=== PATIENT | female | born 1960 | race Caucasian/White ===

== ENCOUNTER 2017-05-16 01:14 | Inpatient (IN) | payer MEDICARE, OTHER, MEDICAID ==
[~2017-05-16] VITALS: Ht 162.6 cm; Wt 100.0 kg
[~2017-05-16 01:14] MED LIST: ACET-2006 PO; ALBU2.5V12 NEB; AMIO200T57 PO; ANUHCCR RC; COM10T PO; CYAN10006 IM; CYCL-394 PO; DIPH-186 PO; DIPH-423 PO; ESTR2TAB PO; FENO145T38 PO; FLUT16SP26 NAS; FURO40TA4 PO; GABA-532 PO; HYDR30CR79 RC; KEN0.1O TP; MAGN500T3 PO; METO50TA16 PO; MORP-64 PO; NABU500T2 PO; NITR0.4T51 SL; NORCO10T PO; OMEP40CA37 PO; POTA10CA44 PO; POTA10TA19 PO; PROC25SU31 RC; SUCR1ORA12 PO; SUMA25TA35 PO; SYN0.1T PO; TRAZ-91 PO; VAL5T PO; [UNRECOGNIZED DRUG - CODE] PO
[2017-05-16] MEDS ORDERED: ondansetron/PF 4mg/2ml inj IV ONE (03:50)
[2017-05-16] MEDS ORDERED: mag hydrox/Alum hydrox/simeth 30ml oral suspension PO ONE (03:50)
[2017-05-16] MEDS ORDERED: LIDOcaine Viscous 15ml cup PO ONE (03:50)
[2017-05-16] MEDS ORDERED: normal saline 1000ml 1,000 ML IV ONE (03:50)
[2017-05-16] MEDS ORDERED: morphine 2 MG/ML inj. syringe IV ONE (03:50)
[2017-05-16] MEDS ORDERED: normal saline 1000ML IV soln IVB ONE (03:50)
[2017-05-16] MEDS ORDERED: morphine 4 MG/ML inj SYRINge IV ONE ×2 (04:15→05:55)
[2017-05-16 05:10] LABS: BASOPHILS % (AUTO) 0.2 % (0-1); EOSINOPHILS # (AUTO) 0.1 X10'3 (0-0.9); EOSINOPHILS % (AUTO) 0.9 % (0-6); HEMATOCRIT 38.5 % (35.0-45.0); HEMOGLOBIN 12.7 g/dl (12.0-16.0); LYMPHOCYTES # (AUTO) 0.6 X10'3 (1.1-4.8); LYMPHOCYTES % (AUTO) 4.1 % (21-51); MEAN CORPUSCULAR HEMOGLOBIN 28.6 PG (27.0-31.0); MEAN CORPUSCULAR VOLUME 86.4 FL (78-98); MEAN PLATELET VOLUME 8.3 FL (7.4-10.4); MONOCYTES # (AUTO) 0.7 X10'3 (0-0.9); MONOCYTES % (AUTO) 5.1 % (2-12); NEUTROPHILS % (AUTO) 89.7 % (42-75); PLATELET COUNT 183 X10'3 (140-440); RED BLOOD COUNT 4.46 X10'6 (4.20-5.60); WHITE BLOOD COUNT 13.4 X10'3 (4.5-11.0)
[2017-05-16] MEDS ORDERED: diphenhydrAMINE 50 mg/ml inj IV ONE ×2 (05:10→09:05)
[2017-05-16 05:21] LABS: INR 1.1 INR; PROTHROMBIN TIME 11.4 SECONDS (9.0-12.0)
[2017-05-16 05:25] LABS: ALANINE AMINOTRANSFERASE 16 U/L (12-78); ALBUMIN 2.9 G/DL (3.4-5.0); ALBUMIN/GLOBULIN RATIO 0.7 (1.1-1.5); ALKALINE PHOSPHATASE 68 IU/L (46-116); AMYLASE 79 U/L (25-115); ANION GAP 10 (8-16); ASPARTATE AMINO TRANSFERASE 12 U/L (10-37); BILIRUBIN,TOTAL 0.4 MG/DL (0.1-1.0); BLOOD UREA NITROGEN 14 MG/DL (7-18); BUN/CREATININE RATIO 18.9 (6.6-38.0); CALCIUM 9.3 MG/DL (8.5-10.1); CHLORIDE 104 MMOL/L (99-107); CREATININE 0.74 MG/DL (0.40-0.90); ETHANOL < 0.010 GM/DL (0.0-0.010); GLUCOSE 123 MG/DL (70-104); LIPASE 962 U/L (73-393); MAGNESIUM 1.4 MG/DL (1.5-2.4); POTASSIUM 3.1 MMOL/L (3.5-5.1); SODIUM 142 MMOL/L (135-145); TOTAL PROTEIN 6.8 G/DL (6.4-8.2); eGFR 81 ML/MIN
[2017-05-16 05:33] LABS: CLARITY,URINE CLEAR (Clear); COLOR,URINE YELLOW (Yellow); GLUCOSE, URINE NEGATIVE (Neg); KETONES,URINE NEGATIVE (Neg); LEUKOCYTE ESTERASE ,URINE NEGATIVE (Neg); NITRITES, URINE NEGATIVE (Neg); OCCULT BLOOD,URINE NEGATIVE (Neg); PH,URINE 5.5 (4.8-8.0); PROTEIN,URINE NEGATIVE (Neg); UROBILINOGEN,URINE 0.2 E.U/dL (0.2-1.0)
[2017-05-16 05:43] LABS: UA COLLECTION TYPE STRAIGHT CATH
[2017-05-16] MEDS ORDERED: magnesium 2GM in 50ml NS 50 ML IV ONE (05:44)
[2017-05-16] MEDS ORDERED: potassium 10mEq/100ml NS w/LIDOcaine (10mg/bag) IV ONE (05:45)
[2017-05-16 05:47] LABS: URINE AMPHETAMINE SCREEN NEGATIVE (Neg); URINE BARBITUATE SCREEN NEGATIVE (Neg); URINE BENZODIAZEPINES SCREEN POSITIVE (Neg); URINE CANNABINOID SCREEN POSITIVE (Neg); URINE COCAINE SCREEN NEGATIVE (Neg); URINE METHADONE SCREEN NEGATIVE (Neg); URINE OPIATE SCREEN POSITIVE (Neg); URINE PHENCYCLIDINE SCREEN NEGATIVE (Neg)
[2017-05-16] MEDS ORDERED: morphine 4 MG/ML inj SYRINge IM ONE (08:45)
[2017-05-16] MEDS ORDERED: dextrose 5%-1/2 normal saline 1,000 ML IV SCH (08:47)
[2017-05-16] MEDS ORDERED: HYDROmorphone inj. 0.5 MG/0.5 ML DISP.SYRIN IV PRN (08:50)
[2017-05-16] MEDS ORDERED: mag hydrox/Alum hydrox/simeth 30ml oral suspension PO PRN (08:50)
[2017-05-16] MEDS ORDERED: magnesium hydroxide 30ml (MOM) UD suspension PO PRN (08:50)
[2017-05-16] MEDS ORDERED: diphenhydrAMINE 50 mg/ml inj IV PRN (08:50)
[2017-05-16] MEDS ORDERED: nitroGLYCERIN 0.4mg SUBLingual tab SL PRN (09:00)
[2017-05-16] MEDS ORDERED: proCHLORperazine 10mg tablet PO PRN (09:00)
[2017-05-16] MEDS ORDERED: SUMAtriptan 25 MG tablet PO PRN (09:00)
[2017-05-16] MEDS ORDERED: fluticasone nasal spray 16GM bottle NS PRN (09:00)
[2017-05-16] MEDS ORDERED: diphenhydrAMINE 25mg capsule PO PRN (09:00)
[2017-05-16] MEDS ORDERED: cyanocobalamin 1,000 mcg/ml inj IM SCH (09:00)
[2017-05-16] MEDS ORDERED: proCHLORperazine 25mg suppository RC PRN (09:00)
[2017-05-16] MEDS ORDERED: triamcinolone acet 0.1% cream 15gm TP PRN (09:00)
[2017-05-16] MEDS ORDERED: diphenoxylate/atropine tablet (Lomotil) PO PRN (09:00)
[2017-05-16] MEDS ORDERED: non-formulary drug (Acetaminophen (Acetaminophen Extra Strength) 1 TAB) PO PRN (09:00)
[2017-05-16] MEDS ORDERED: diphenhydrAMINE 50 mg/ml inj ONE (09:06)
[2017-05-16] MEDS ORDERED: morphine 2 MG/ML inj. syringe IV PRN (09:10)
[2017-05-16] MEDS ORDERED: hydrocortisone acetate 25mg rectal suppository RC PRN (10:40)
[2017-05-16] MEDS: albuterol 2.5 MG/3 ML nebule NEB SCH ×3 (11:00→19:00)
[2017-05-16] MEDS ORDERED: GLUCOSAMINE SULFATE 500 MG PO SCH (13:00)
[2017-05-16] MEDS: sucralfate 1gm/10ml UD suspension PO SCH ×3 (13:02→20:36)
[2017-05-16] MEDS: gabapentin 300mg capsule PO SCH ×2 (13:02→20:33)
[2017-05-16] MEDS: morphine ER 15mg tablet PO SCH ×2 (13:02→20:34)
[2017-05-16] MEDS ORDERED: normal saline 500ml IV soln 1,000 ML IV ONE ×2 (14:30→16:25)
[2017-05-16] MEDS: HYDROcodone/acetaminophen 10/325mg tab PO PRN (15:09)
[2017-05-16] MEDS: SUMAtriptan 25 MG tablet PO PRN (17:02)
[2017-05-16] MEDS: dextrose 5%-1/2 normal saline 1,000 ML IV SCH (17:06)
[2017-05-16] MEDS: metoprolol tartrate 50mg tablet PO SCH (17:48)
[2017-05-16] MEDS ORDERED: normal saline 250ml IV soln 250 ML IV ONE (18:50)
[2017-05-16] MEDS: diazepam 5mg tablet PO PRN (18:58)
[2017-05-16] MEDS: cyclobenzaprine 10mg tablet PO PRN (18:58)
[2017-05-16] MEDS ORDERED: morphine IR (immed. release) 30mg tablet PO PRN (19:05)
[2017-05-16] MEDS ORDERED: non-formulary drug (Potassium Chloride (Klor-Con) 1 TAB) PO SCH (20:00)
[2017-05-16] MEDS: HYDROCORTISONE 28.35 GM CREAM.GM. RC SCH (20:00)
[2017-05-16] MEDS: docusate sod 100mg capsule PO SCH (20:33)
[2017-05-16] MEDS: magnesium oxide 400mg tablet PO SCH (20:34)
[2017-05-16] MEDS: potassium Cl 20 mEq SR tablet PO SCH (20:34)
[2017-05-16] MEDS: traZODone 150mg tablet PO SCH (20:56)
[2017-05-16] MEDS ORDERED: temazepam 15mg capsule PO PRN (21:00)
[2017-05-17] MEDS: albuterol 2.5 MG/3 ML nebule NEB SCH ×7 (00:51→23:00)
[2017-05-17] MEDS: ondansetron/PF 4mg/2ml inj IV PRN (01:18)
[2017-05-17] MEDS: morphine 4 MG/ML inj SYRINge IV PRN ×3 (01:19→12:35)
[2017-05-17] MEDS: dextrose 5%-1/2 normal saline 1,000 ML IV SCH ×2 (05:19→17:36)
[2017-05-17 06:43] LABS: BASOPHILS % (AUTO) 0.3 % (0-1); EOSINOPHILS % (AUTO) 0 % (0-6); HEMATOCRIT 32.3 % (35.0-45.0); HEMOGLOBIN 10.7 g/dl (12.0-16.0); LYMPHOCYTES # (AUTO) 0.5 X10'3 (1.1-4.8); LYMPHOCYTES % (AUTO) 6.3 % (21-51); MEAN CORPUSCULAR HEMOGLOBIN 28.8 PG (27.0-31.0); MEAN CORPUSCULAR HGB CONC 33.3 % (33.0-36.5); MEAN CORPUSCULAR VOLUME 86.3 FL (78-98); MEAN PLATELET VOLUME 8.1 FL (7.4-10.4); MONOCYTES # (AUTO) 0.6 X10'3 (0-0.9); MONOCYTES % (AUTO) 7.2 % (2-12); NEUTROPHILS # (AUTO) 6.9 X10'3 (1.8-7.7); NEUTROPHILS % (AUTO) 86.2 % (42-75); PLATELET COUNT 117 X10'3 (140-440); RED BLOOD COUNT 3.74 X10'6 (4.20-5.60); RED CELL DISTRIBUTION WIDTH 17.1 % (11.5-14.5)
[2017-05-17 07:13] LABS: ALANINE AMINOTRANSFERASE 9 U/L (12-78); ALBUMIN 1.9 G/DL (3.4-5.0); ALBUMIN/GLOBULIN RATIO 0.5 (1.1-1.5); ALKALINE PHOSPHATASE 55 IU/L (46-116); ANION GAP 6 (8-16); ASPARTATE AMINO TRANSFERASE 18 U/L (10-37); BILIRUBIN,TOTAL 0.4 MG/DL (0.1-1.0); BLOOD UREA NITROGEN 6 MG/DL (7-18); BUN/CREATININE RATIO 9.1 (6.6-38.0); CALCIUM 7.9 MG/DL (8.5-10.1); CHLORIDE 108 MMOL/L (99-107); CREATININE 0.66 MG/DL (0.40-0.90); GLUCOSE 114 MG/DL (70-104); LIPASE 323 U/L (73-393); POTASSIUM 3.6 MMOL/L (3.5-5.1); SODIUM 140 MMOL/L (135-145); TOTAL CARBON DIOXIDE 25.6 MMOL/L (24-32); TOTAL PROTEIN 5.5 G/DL (6.4-8.2); eGFR > 90 ML/MIN
[2017-05-17] MEDS: pantoprazole 40mg Tablet.DR PO SCH (07:30)
[2017-05-17] MEDS: metoprolol tartrate 50mg tablet PO SCH ×2 (08:00→21:31)
[2017-05-17] MEDS: docusate sod 100mg capsule PO SCH ×2 (08:00→21:31)
[2017-05-17] MEDS: furosemide 20MG tablet PO SCH (08:00)
[2017-05-17] MEDS: enoxaparin 40mg/0.4ml syringe SUBCUT SCH (08:00)
[2017-05-17] MEDS: fenofibrate 145mg tablet PO SCH (08:00)
[2017-05-17] MEDS: magnesium oxide 400mg tablet PO SCH ×2 (08:00→21:31)
[2017-05-17] MEDS: potassium Cl 20 mEq SR tablet PO SCH ×2 (08:00→21:31)
[2017-05-17] MEDS ORDERED: furosemide 40mg tablet PO SCH (08:00)
[2017-05-17] MEDS: levoTHYROXINE 100mcg tablet PO SCH (08:00)
[2017-05-17] MEDS: gabapentin 300mg capsule PO SCH ×3 (08:00→21:32)
[2017-05-17] MEDS: HYDROCORTISONE 28.35 GM CREAM.GM. RC SCH ×2 (08:00→20:00)
[2017-05-17] MEDS: morphine ER 15mg tablet PO SCH ×2 (08:00→21:31)
[2017-05-17 09:59] VITALS: BP 122/63
[2017-05-17] MEDS: sucralfate 1gm/10ml UD suspension PO SCH ×4 (11:19→21:31)
[2017-05-17] MEDS: estradiol 1mg tablet PO SCH (11:21)
[2017-05-17] MEDS: acetaminophen 325mg tablet PO PRN ×2 (11:35→21:37)
[2017-05-17] MEDS: HYDROcodone/acetaminophen 10/325mg tab PO PRN ×2 (11:36→19:00)
[2017-05-17 11:40] VITALS: BP 123/63
[2017-05-17] MEDS: amiodarone 100mg tablet PO SCH (12:34)
[2017-05-17] MEDS: SUMAtriptan 25 MG tablet PO PRN (17:37)
[2017-05-17 19:00] VITALS: BP 132/62
[2017-05-17] MEDS: traZODone 150mg tablet PO SCH (21:32)
[2017-05-17 23:00] VITALS: BP 105/52
[2017-05-18] MEDS: cyclobenzaprine 10mg tablet PO PRN (01:09)
[2017-05-18] MEDS: diazepam 5mg tablet PO PRN (01:10)
[2017-05-18] MEDS: albuterol 2.5 MG/3 ML nebule NEB SCH ×6 (03:00→23:00)
[2017-05-18 06:54] LABS: BASOPHILS % (AUTO) 0.1 % (0-1); EOSINOPHILS # (AUTO) 0.1 X10'3 (0-0.9); EOSINOPHILS % (AUTO) 1.2 % (0-6); HEMATOCRIT 33.8 % (35.0-45.0); LYMPHOCYTES # (AUTO) 0.7 X10'3 (1.1-4.8); LYMPHOCYTES % (AUTO) 5.4 % (21-51); MEAN CORPUSCULAR HEMOGLOBIN 28.7 PG (27.0-31.0); MEAN CORPUSCULAR HGB CONC 32.5 % (33.0-36.5); MEAN CORPUSCULAR VOLUME 88.2 FL (78-98); MEAN PLATELET VOLUME 8.9 FL (7.4-10.4); MONOCYTES % (AUTO) 8.2 % (2-12); NEUTROPHILS # (AUTO) 10.3 X10'3 (1.8-7.7); NEUTROPHILS % (AUTO) 85.1 % (42-75); PLATELET COUNT 161 X10'3 (140-440); RED BLOOD COUNT 3.83 X10'6 (4.20-5.60); RED CELL DISTRIBUTION WIDTH 16.5 % (11.5-14.5); WHITE BLOOD COUNT 12.2 X10'3 (4.5-11.0)
[2017-05-18] MEDS: acetaminophen 325mg tablet PO PRN ×2 (07:06→15:28)
[2017-05-18] MEDS: morphine ER 15mg tablet PO SCH ×2 (07:07→20:50)
[2017-05-18] MEDS: magnesium oxide 400mg tablet PO SCH ×2 (07:07→20:49)
[2017-05-18] MEDS: estradiol 1mg tablet PO SCH (07:07)
[2017-05-18] MEDS: amiodarone 100mg tablet PO SCH (07:07)
[2017-05-18] MEDS: levoTHYROXINE 100mcg tablet PO SCH (07:08)
[2017-05-18] MEDS: furosemide 20MG tablet PO SCH (07:08)
[2017-05-18] MEDS: fenofibrate 145mg tablet PO SCH (07:08)
[2017-05-18] MEDS: potassium Cl 20 mEq SR tablet PO SCH ×2 (07:08→20:49)
[2017-05-18] MEDS: gabapentin 300mg capsule PO SCH ×3 (07:09→20:50)
[2017-05-18 07:10] LABS: ALANINE AMINOTRANSFERASE 15 U/L (12-78); ALBUMIN 1.9 G/DL (3.4-5.0); ALBUMIN/GLOBULIN RATIO 0.5 (1.1-1.5); ALKALINE PHOSPHATASE 75 IU/L (46-116); ANION GAP 9 (8-16); ASPARTATE AMINO TRANSFERASE 19 U/L (10-37); BILIRUBIN,TOTAL 0.4 MG/DL (0.1-1.0); BLOOD UREA NITROGEN 5 MG/DL (7-18); CALCIUM 8.1 MG/DL (8.5-10.1); CHLORIDE 106 MMOL/L (99-107); CREATININE 0.71 MG/DL (0.40-0.90); GLUCOSE 104 MG/DL (70-104); LIPASE 362 U/L (73-393); POTASSIUM 3.7 MMOL/L (3.5-5.1); SODIUM 140 MMOL/L (135-145); TOTAL CARBON DIOXIDE 25.5 MMOL/L (24-32); TOTAL PROTEIN 5.8 G/DL (6.4-8.2); eGFR 85 ML/MIN
[2017-05-18] MEDS: pantoprazole 40mg Tablet.DR PO SCH (07:10)
[2017-05-18] MEDS: sucralfate 1gm/10ml UD suspension PO SCH ×4 (07:10→20:51)
[2017-05-18] MEDS: docusate sod 100mg capsule PO SCH ×2 (07:10→20:49)
[2017-05-18] MEDS: enoxaparin 40mg/0.4ml syringe SUBCUT SCH (07:14)
[2017-05-18] MEDS: metoprolol tartrate 50mg tablet PO SCH ×2 (07:14→20:50)
[2017-05-18 07:40] VITALS: BP 149/79
[2017-05-18] MEDS: HYDROCORTISONE 28.35 GM CREAM.GM. RC SCH (08:00)
[2017-05-18] MEDS ORDERED: iohexol 300mg/ml 100ml inj. ONE (09:50)
[2017-05-18] MEDS: dextrose 5%-1/2 normal saline 1,000 ML IV SCH (11:19)
[2017-05-18] MEDS ORDERED: FURO-150 PO (11:33)
[2017-05-18] MEDS: morphine 4 MG/ML inj SYRINge IV PRN (11:34)
[2017-05-18 12:04] VITALS: BP 127/69
[2017-05-18 13:19] LABS: CLARITY,URINE CLOUDY (Clear); COLOR,URINE YELLOW (Yellow); GLUCOSE, URINE NEGATIVE (Neg); KETONES,URINE NEGATIVE (Neg); LEUKOCYTE ESTERASE ,URINE LARGE (Neg); NITRITES, URINE POSITIVE (Neg); OCCULT BLOOD,URINE MODERATE (Neg); PROTEIN,URINE NEGATIVE (Neg); UROBILINOGEN,URINE 0.2 E.U/dL (0.2-1.0)
[2017-05-18 13:22] LABS: UA COLLECTION TYPE NON-SPECIFIED
[2017-05-18 13:25] LABS: BACTERIA,URINE 4+ /HPF (Neg); WBC,URINE TNTC /HPF (0-4)
[2017-05-18 13:31] LABS: SQUAMOUS EPITHELIAL CELL,UR MODERATE /LPF (FEW)
[2017-05-18] MEDS: ondansetron/PF 4mg/2ml inj IV PRN (13:31)
[2017-05-18 13:32] LABS: RBC,URINE 0-2 /HPF (0-2); TRANSITIONAL EPI CELLS,URINE FEW /HPF
[2017-05-18 13:33] LABS: COARSE GRANULAR CAST 0-3 /LPF (NEGATIVE); HYALINE CASTS 0-3 /LPF (NEGATIVE); WBC CLUMPS,URINE FEW /HPF (NEGATIVE)
[2017-05-18] MEDS: HYDROcodone/acetaminophen 10/325mg tab PO PRN (15:50)
[2017-05-18 20:00] VITALS: BP 112/68
[2017-05-18] MEDS: HYDROCORTISONE RC SCH (20:00)
[2017-05-18] MEDS: PRAMOXINE RC SCH (20:00)
[2017-05-18] MEDS: lactobacillus rhamnosus 10,000 MMU CELLS/CAPSULE PO SCH (20:49)
[2017-05-18] MEDS: traZODone 150mg tablet PO SCH (20:50)
[2017-05-19] VITALS (8 sets, daily range): BP systolic 108–170; BP diastolic 57–85
[2017-05-19] MEDS: dextrose 5%-1/2 normal saline 1,000 ML IV SCH ×3 (02:02→20:23)
[2017-05-19] MEDS: albuterol 2.5 MG/3 ML nebule NEB SCH ×6 (03:00→23:00)
[2017-05-19 06:35] LABS: BASOPHILS % (AUTO) 0 % (0-1); EOSINOPHILS # (AUTO) 0.1 X10'3 (0-0.9); EOSINOPHILS % (AUTO) 1.3 % (0-6); HEMATOCRIT 28.4 % (35.0-45.0); HEMOGLOBIN 9.2 g/dl (12.0-16.0); LYMPHOCYTES # (AUTO) 0.5 X10'3 (1.1-4.8); LYMPHOCYTES % (AUTO) 6.7 % (21-51); MEAN CORPUSCULAR HEMOGLOBIN 28.6 PG (27.0-31.0); MEAN CORPUSCULAR HGB CONC 32.4 % (33.0-36.5); MEAN CORPUSCULAR VOLUME 88.4 FL (78-98); MEAN PLATELET VOLUME 8.6 FL (7.4-10.4); MONOCYTES # (AUTO) 0.7 X10'3 (0-0.9); NEUTROPHILS # (AUTO) 6.1 X10'3 (1.8-7.7); PLATELET COUNT 158 X10'3 (140-440); RED BLOOD COUNT 3.21 X10'6 (4.20-5.60); RED CELL DISTRIBUTION WIDTH 16.4 % (11.5-14.5); WHITE BLOOD COUNT 7.4 X10'3 (4.5-11.0)
[2017-05-19 06:47] LABS: ALANINE AMINOTRANSFERASE 9 U/L (12-78); ALBUMIN 1.7 G/DL (3.4-5.0); ALBUMIN/GLOBULIN RATIO 0.5 (1.1-1.5); ALKALINE PHOSPHATASE 63 IU/L (46-116); ANION GAP 5 (8-16); ASPARTATE AMINO TRANSFERASE 13 U/L (10-37); BILIRUBIN,TOTAL 0.3 MG/DL (0.1-1.0); BLOOD UREA NITROGEN 4 MG/DL (7-18); CHLORIDE 109 MMOL/L (99-107); CREATININE 0.67 MG/DL (0.40-0.90); GLUCOSE 113 MG/DL (70-104); LIPASE 100 U/L (73-393); POTASSIUM 3.7 MMOL/L (3.5-5.1); SODIUM 142 MMOL/L (135-145); TOTAL CARBON DIOXIDE 28.1 MMOL/L (24-32); TOTAL PROTEIN 5.4 G/DL (6.4-8.2); eGFR > 90 ML/MIN
[2017-05-19] MEDS: PRAMOXINE RC SCH ×2 (08:00→20:00)
[2017-05-19] MEDS: morphine ER 15mg tablet PO SCH ×2 (08:00→20:16)
[2017-05-19] MEDS: HYDROCORTISONE RC SCH ×2 (08:00→20:00)
[2017-05-19] MEDS: lactobacillus rhamnosus 10,000 MMU CELLS/CAPSULE PO SCH ×2 (09:33→20:12)
[2017-05-19] MEDS: magnesium oxide 400mg tablet PO SCH ×2 (09:33→20:16)
[2017-05-19] MEDS: gabapentin 300mg capsule PO SCH ×3 (09:34→20:13)
[2017-05-19] MEDS: potassium Cl 20 mEq SR tablet PO SCH ×2 (09:34→20:12)
[2017-05-19] MEDS: fenofibrate 145mg tablet PO SCH (09:34)
[2017-05-19] MEDS: pantoprazole 40mg Tablet.DR PO SCH (09:34)
[2017-05-19] MEDS: metoprolol tartrate 50mg tablet PO SCH ×2 (09:34→20:16)
[2017-05-19] MEDS: furosemide 20MG tablet PO SCH (09:35)
[2017-05-19] MEDS: amiodarone 100mg tablet PO SCH (09:35)
[2017-05-19] MEDS: docusate sod 100mg capsule PO SCH ×2 (09:35→20:16)
[2017-05-19] MEDS: levoTHYROXINE 100mcg tablet PO SCH (09:35)
[2017-05-19] MEDS: HYDROcodone/acetaminophen 10/325mg tab PO PRN ×2 (09:40→13:39)
[2017-05-19] MEDS: estradiol 1mg tablet PO SCH (09:42)
[2017-05-19] MEDS: sucralfate 1gm/10ml UD suspension PO SCH ×4 (09:42→20:12)
[2017-05-19] MEDS: enoxaparin 40mg/0.4ml syringe SUBCUT SCH (09:42)
[2017-05-19] MEDS: cefTRIAXone 1g/NS 100ml IVPB 100 ML IV SCH (09:43)
[2017-05-19] MEDS ORDERED: SUMAtriptan 25 MG tablet PO ONE (10:20)
[2017-05-19] MEDS: morphine IR (immed. release) 30mg tablet PO PRN (13:46)
[2017-05-19] MEDS ORDERED: MIDAZolam 5mg/ml 2ml vial ONE (15:20)
[2017-05-19] MEDS ORDERED: fentaNYL/PF 50MCG/1 ML 2ML syringe ONE (15:20)
[2017-05-19] MEDS ORDERED: LIDOcaine Viscous 15ml cup ONE (15:21)
[2017-05-19] MEDS ORDERED: normal saline 1000ml 1,000 ML IV SCH (15:54)
[2017-05-19] MEDS ORDERED: LIDOcaine Viscous 15ml cup PO ONE (15:55)
[2017-05-19] MEDS ORDERED: fentaNYL/PF 50MCG/1 ML 2ML syringe IV PRN (15:55)
[2017-05-19] MEDS ORDERED: MIDAZolam 5mg/5ml vial IV PRN (15:55)
[2017-05-19] MEDS ORDERED: simethicone 40mg/0.6ml oral drops 30ml MC ONE (15:55)
[2017-05-19] MEDS: traZODone 150mg tablet PO SCH (20:12)
[2017-05-20] VITALS: BP 102/55
[2017-05-20] MEDS: acetaminophen 325mg tablet PO PRN ×2 (02:33→14:15)
[2017-05-20] MEDS: albuterol 2.5 MG/3 ML nebule NEB SCH ×4 (04:29→15:00)
[2017-05-20 06:17] LABS: BASOPHILS % (AUTO) 0.2 % (0-1); EOSINOPHILS # (AUTO) 0.1 X10'3 (0-0.9); EOSINOPHILS % (AUTO) 1.4 % (0-6); HEMATOCRIT 28.1 % (35.0-45.0); HEMOGLOBIN 9.3 g/dl (12.0-16.0); LYMPHOCYTES # (AUTO) 0.6 X10'3 (1.1-4.8); MEAN CORPUSCULAR HEMOGLOBIN 28.7 PG (27.0-31.0); MEAN CORPUSCULAR VOLUME 86.8 FL (78-98); MEAN PLATELET VOLUME 8.3 FL (7.4-10.4); MONOCYTES # (AUTO) 0.4 X10'3 (0-0.9); MONOCYTES % (AUTO) 7.6 % (2-12); NEUTROPHILS # (AUTO) 4.7 X10'3 (1.8-7.7); NEUTROPHILS % (AUTO) 79.8 % (42-75); PLATELET COUNT 156 X10'3 (140-440); RED BLOOD COUNT 3.24 X10'6 (4.20-5.60); RED CELL DISTRIBUTION WIDTH 16.3 % (11.5-14.5); WHITE BLOOD COUNT 5.9 X10'3 (4.5-11.0)
[2017-05-20 06:47] LABS: ALANINE AMINOTRANSFERASE 13 U/L (12-78); ALBUMIN 1.8 G/DL (3.4-5.0); ALBUMIN/GLOBULIN RATIO 0.5 (1.1-1.5); ALKALINE PHOSPHATASE 60 IU/L (46-116); ANION GAP 11 (8-16); ASPARTATE AMINO TRANSFERASE 14 U/L (10-37); BILIRUBIN,TOTAL 0.3 MG/DL (0.1-1.0); BLOOD UREA NITROGEN 3 MG/DL (7-18); CALCIUM 8.3 MG/DL (8.5-10.1); CHLORIDE 109 MMOL/L (99-107); GLUCOSE 95 MG/DL (70-104); LIPASE < 50 U/L (73-393); POTASSIUM 3.9 MMOL/L (3.5-5.1); SODIUM 141 MMOL/L (135-145); TOTAL CARBON DIOXIDE 21.2 MMOL/L (24-32); TOTAL PROTEIN 5.5 G/DL (6.4-8.2); eGFR > 90 ML/MIN
[2017-05-20 07:00] VITALS: BP 107/54
[2017-05-20] MEDS: HYDROCORTISONE RC SCH (07:33)
[2017-05-20] MEDS: PRAMOXINE RC SCH (07:33)
[2017-05-20] MEDS: metoprolol tartrate 50mg tablet PO SCH (09:55)
[2017-05-20] MEDS: furosemide 20MG tablet PO SCH (09:55)
[2017-05-20] MEDS: pantoprazole 40mg Tablet.DR PO SCH (09:56)
[2017-05-20] MEDS: amiodarone 100mg tablet PO SCH (09:56)
[2017-05-20] MEDS: morphine ER 15mg tablet PO SCH (09:56)
[2017-05-20] MEDS: lactobacillus rhamnosus 10,000 MMU CELLS/CAPSULE PO SCH (09:56)
[2017-05-20] MEDS: magnesium oxide 400mg tablet PO SCH (09:57)
[2017-05-20] MEDS: docusate sod 100mg capsule PO SCH (09:58)
[2017-05-20] MEDS: estradiol 1mg tablet PO SCH (09:58)
[2017-05-20] MEDS: potassium Cl 20 mEq SR tablet PO SCH (09:59)
[2017-05-20] MEDS: gabapentin 300mg capsule PO SCH ×2 (10:00→12:33)
[2017-05-20] MEDS: sucralfate 1gm/10ml UD suspension PO SCH ×2 (10:00→12:33)
[2017-05-20] MEDS: fenofibrate 145mg tablet PO SCH (10:00)
[2017-05-20] MEDS: cefTRIAXone 1g/NS 100ml IVPB 100 ML IV SCH (10:01)
[2017-05-20] MEDS: enoxaparin 40mg/0.4ml syringe SUBCUT SCH (10:02)
[2017-05-20] MEDS: levoTHYROXINE 100mcg tablet PO SCH (10:09)
[2017-05-20] MEDS: morphine IR (immed. release) 30mg tablet PO PRN (10:10)
[2017-05-20] MEDS: dextrose 5%-1/2 normal saline 1,000 ML IV SCH (10:11)
[2017-05-20] MEDS ORDERED: CEPH250T PO (10:39)
[2017-05-20 11:00] VITALS: BP 129/68
[2017-05-20] MEDS: HYDROcodone/acetaminophen 10/325mg tab PO PRN (12:33)
== END 2017-05-20 16:05 | disposition home health service (06) | DRG 377 ==
LOC: ER 01:14 → ED HOLD 08:47 → EDBEDREQ 05-17 06:35 → SUR 3N 05-17 08:18
PROVIDERS: ADMIT Internal Medicine; ATTEND Internal Medicine
PROC: 0DJ08ZZ Inspection of Upper Intestinal Tract, Via Natural or Artificial Opening Endoscopic (ICD-10-PCS; principal; 2017-05-19)
DX: K29.71 Gastritis, unspecified, with bleeding (principal); K85.90 Acute pancreatitis without necrosis or infection, unspecified; Z99.81 Dependence on supplemental oxygen; E83.42 Hypomagnesemia; G62.9 Polyneuropathy, unspecified; D62 Acute posthemorrhagic anemia; K86.1 Other chronic pancreatitis; G90.50 Complex regional pain syndrome I, unspecified; E87.6 Hypokalemia; E86.0 Dehydration; E03.9 Hypothyroidism, unspecified; G43.909 Migraine, unspecified, not intractable, without status migrainosus; G89.4 Chronic pain syndrome; I10 Essential (primary) hypertension; J44.9 Chronic obstructive pulmonary disease, unspecified; K21.9 Gastro-esophageal reflux disease without esophagitis; D64.9 Anemia, unspecified; K44.9 Diaphragmatic hernia without obstruction or gangrene; F32.9 Major depressive disorder, single episode, unspecified; F41.9 Anxiety disorder, unspecified; M79.7 Fibromyalgia; E66.9 Obesity, unspecified; F17.210 Nicotine dependence, cigarettes, uncomplicated; Z60.2 Problems related to living alone; Z90.710 Acquired absence of both cervix and uterus; Z90.49 Acquired absence of other specified parts of digestive tract; Z56.0 Unemployment, unspecified; Z88.0 Allergy status to penicillin; Z88.2 Allergy status to sulfonamides; Z88.6 Allergy status to analgesic agent; Z91.040 Latex allergy status; Z91.018 Allergy to other foods; Z79.899 Other long term (current) drug therapy; Z86.73 Personal history of transient ischemic attack (TIA), and cerebral infarction without residual deficits; Z83.3 Family history of diabetes mellitus; Z82.61 Family history of arthritis; Z68.37 Body mass index [BMI] 37.0-37.9, adult
CPT/HCPCS: 36415; 71045; 74177; 80053; 80305; 80320; 81001; 81003; 82150; 83605; 83690; 83735; 84443; 84484; 85025; 85610; 87040; 87070; 87077; 87088; 87186; 93005; 94640; 94760; 96361; 96365; 96366; 96375; 99285; A4620; G0500; J0696; J1200; J1650; J2250; J2270; J2405; J3010; J3475; J3480; J7030; Q9967

== ENCOUNTER 2017-08-19 21:28 | Emergency (ER) | payer MEDICARE, OTHER, MEDICAID ==
[~2017-08-19] VITALS: Ht 162.6 cm; Wt 77.7 kg
[~2017-08-19 21:28] MED LIST changes: -AMIO200T57 PO; +CEPH250T PO; -COM10T PO; -CYAN10006 IM; +FURO-150 PO; -FURO40TA4 PO; -NABU500T2 PO; -POTA10CA44 PO
[2017-08-19] MEDS ORDERED: ondansetron/PF 4mg/2ml inj IV ONE (22:30)
[2017-08-19] MEDS ORDERED: morphine 4 MG/ML inj SYRINge IV ONE (22:30)
[2017-08-19] MEDS ORDERED: furosemide 10 MG/1 ML 10ml inj IV ONE (22:30)
[2017-08-19 22:46] LABS: BASOPHILS % (AUTO) 0.5 % (0-1); EOSINOPHILS # (AUTO) 0.1 X10'3 (0-0.9); EOSINOPHILS % (AUTO) 4.4 % (0-6); HEMATOCRIT 33.4 % (35.0-45.0); HEMOGLOBIN 11.1 g/dl (12.0-16.0); LYMPHOCYTES # (AUTO) 0.8 X10'3 (1.1-4.8); LYMPHOCYTES % (AUTO) 25.9 % (21-51); MEAN CORPUSCULAR HEMOGLOBIN 30.3 PG (27.0-31.0); MEAN CORPUSCULAR HGB CONC 33.1 % (33.0-36.5); MEAN CORPUSCULAR VOLUME 91.4 FL (78-98); MEAN PLATELET VOLUME 8.4 FL (7.4-10.4); MONOCYTES # (AUTO) 0.2 X10'3 (0-0.9); MONOCYTES % (AUTO) 8.3 % (2-12); NEUTROPHILS # (AUTO) 1.8 X10'3 (1.8-7.7); NEUTROPHILS % (AUTO) 60.9 % (42-75); PLATELET COUNT 91 X10'3 (140-440); RED BLOOD COUNT 3.66 X10'6 (4.20-5.60); RED CELL DISTRIBUTION WIDTH 17.4 % (11.5-14.5); WHITE BLOOD COUNT 2.9 X10'3 (4.5-11.0)
[2017-08-19 22:56] LABS: INR 1.2 INR; PARTIAL THROMBOPLASTIN TIME 31 SECONDS (22-32); PROTHROMBIN TIME 12.4 SECONDS (9.0-12.0)
[2017-08-19 22:59] LABS: ALANINE AMINOTRANSFERASE 14 U/L (12-78); ALBUMIN 2.4 G/DL (3.4-5.0); ALBUMIN/GLOBULIN RATIO 0.8 (1.1-1.5); ALKALINE PHOSPHATASE 87 IU/L (46-116); ANION GAP 3 (8-16); ASPARTATE AMINO TRANSFERASE 21 U/L (10-37); BILIRUBIN,TOTAL 0.3 MG/DL (0.1-1.0); BLOOD UREA NITROGEN 8 MG/DL (7-18); BUN/CREATININE RATIO 10.4 (6.6-38.0); CALCIUM 8.2 MG/DL (8.5-10.1); CHLORIDE 104 MMOL/L (99-107); CREATININE 0.77 MG/DL (0.40-0.90); GLUCOSE 93 MG/DL (70-104); POTASSIUM 3.1 MMOL/L (3.5-5.1); SODIUM 139 MMOL/L (135-145); TOTAL CARBON DIOXIDE 31.7 MMOL/L (24-32); TOTAL PROTEIN 5.4 G/DL (6.4-8.2); eGFR 77 ML/MIN
[2017-08-19 23:03] LABS: GIANT PLATELET FEW; PLATELET ESTIMATE DECREASED; TOTAL CELLS COUNTED 100
[2017-08-19] MEDS ORDERED: iohexol 300mg/ml 100ml inj. ONE (23:03)
[2017-08-19] MEDS ORDERED: potassium Cl 20 mEq SR tablet PO STA (23:05)
[2017-08-19 23:10] LABS: CREATINE KINASE 58 U/L (26-192); ETHANOL < 0.010 GM/DL (0.0-0.010); LIPASE 53 U/L (73-393)
[2017-08-20 00:06] VITALS: BP 130/60
[2017-08-20 00:50] LABS: CLARITY,URINE CLEAR (Clear); COLOR,URINE YELLOW (Yellow); GLUCOSE, URINE NEGATIVE (Neg); KETONES,URINE NEGATIVE (Neg); LEUKOCYTE ESTERASE ,URINE NEGATIVE (Neg); NITRITES, URINE NEGATIVE (Neg); OCCULT BLOOD,URINE NEGATIVE (Neg); PH,URINE 5.5 (4.8-8.0); PROTEIN,URINE NEGATIVE (Neg); UROBILINOGEN,URINE 0.2 E.U/dL (0.2-1.0)
[2017-08-20 00:51] LABS: UA COLLECTION TYPE CLN CATCH MIDSTREAM
[2017-08-20 00:57] LABS: URINE AMPHETAMINE SCREEN NEGATIVE (Neg); URINE BARBITUATE SCREEN NEGATIVE (Neg); URINE BENZODIAZEPINES SCREEN POSITIVE (Neg); URINE CANNABINOID SCREEN NEGATIVE (Neg); URINE COCAINE SCREEN NEGATIVE (Neg); URINE METHADONE SCREEN NEGATIVE (Neg); URINE OPIATE SCREEN POSITIVE (Neg); URINE PHENCYCLIDINE SCREEN NEGATIVE (Neg)
[2017-08-20] MEDS ORDERED: PRED20TA PO (01:30)
== END 2017-08-20 02:27 | disposition home or self-care (01) ==
LOC: ER 21:28
DX: R10.9 Unspecified abdominal pain (principal); E87.6 Hypokalemia; E46 Unspecified protein-calorie malnutrition; D72.819 Decreased white blood cell count, unspecified; G62.9 Polyneuropathy, unspecified; I49.9 Cardiac arrhythmia, unspecified; I10 Essential (primary) hypertension; J44.9 Chronic obstructive pulmonary disease, unspecified; G89.29 Other chronic pain; M79.7 Fibromyalgia; K21.9 Gastro-esophageal reflux disease without esophagitis; Z90.710 Acquired absence of both cervix and uterus; Z86.73 Personal history of transient ischemic attack (TIA), and cerebral infarction without residual deficits; Z98.890 Other specified postprocedural states; Z60.2 Problems related to living alone; Z56.0 Unemployment, unspecified; Z88.0 Allergy status to penicillin; Z88.5 Allergy status to narcotic agent; Z88.2 Allergy status to sulfonamides; Z88.8 Allergy status to other drugs, medicaments and biological substances; Z79.899 Other long term (current) drug therapy
CPT/HCPCS: 36415; 71045; 74176; 80053; 80305; 80320; 81003; 82550; 83690; 83880; 84484; 85025; 85610; 85730; 93005; 96374; 96375; 99285; J1940; J2270; J2405; J7030; Q9967

== ENCOUNTER → 2017-10-22 | Emergency (ER) | payer MEDICARE, OTHER, MEDICAID ==
[~2017-10-22] VITALS: Ht 172.7 cm; Wt 77.6 kg
[~2017-10-22] MED LIST changes: +HUMAN PROTHROMBIN COMPLEX PCC IV ONE; +normal saline 1000ML IV soln IVB ONE
[2017-10-22 13:06] VITALS: BP 98/71
[2017-10-22 13:45] LABS: BASOPHILS % (AUTO) 0.3 % (0-1); EOSINOPHILS # (AUTO) 0.1 X10'3 (0-0.9); EOSINOPHILS % (AUTO) 0.5 % (0-6); HEMATOCRIT 37.2 % (35.0-45.0); HEMOGLOBIN 12.4 g/dl (12.0-16.0); LYMPHOCYTES # (AUTO) 0.9 X10'3 (1.1-4.8); LYMPHOCYTES % (AUTO) 8.7 % (21-51); MEAN CORPUSCULAR HEMOGLOBIN 31.4 PG (27.0-31.0); MEAN CORPUSCULAR HGB CONC 33.4 % (33.0-36.5); MEAN CORPUSCULAR VOLUME 94.1 FL (78-98); MEAN PLATELET VOLUME 9.6 FL (7.4-10.4); MONOCYTES # (AUTO) 1.1 X10'3 (0-0.9); MONOCYTES % (AUTO) 10.2 % (2-12); NEUTROPHILS # (AUTO) 8.3 X10'3 (1.8-7.7); NEUTROPHILS % (AUTO) 80.3 % (42-75); PLATELET COUNT 116 X10'3 (140-440); RED BLOOD COUNT 3.95 X10'6 (4.20-5.60); RED CELL DISTRIBUTION WIDTH 15.7 % (11.5-14.5); WHITE BLOOD COUNT 10.3 X10'3 (4.5-11.0)
[2017-10-22 13:54] LABS: INR 1.5 INR; PROTHROMBIN TIME 15.2 SECONDS (9.0-12.0)
[2017-10-22 14:03] LABS: LACTIC SEPSIS 0.6 MMOL/L (0.4-2.0)
[2017-10-22 14:17] LABS: ALANINE AMINOTRANSFERASE 46 U/L (12-78); ALBUMIN 2.1 G/DL (3.4-5.0); ALBUMIN/GLOBULIN RATIO 0.7 (1.1-1.5); ALKALINE PHOSPHATASE 48 IU/L (46-116); ANION GAP 10 (8-16); BILIRUBIN,TOTAL 0.6 MG/DL (0.1-1.0); BLOOD UREA NITROGEN 46 MG/DL (7-18); BUN/CREATININE RATIO 19.1 (6.6-38.0); CALCIUM 7.3 MG/DL (8.5-10.1); CHLORIDE 98 MMOL/L (99-107); CREATININE 2.41 MG/DL (0.40-0.90); GLUCOSE 86 MG/DL (70-104); SODIUM 127 MMOL/L (135-145); TOTAL CARBON DIOXIDE 19.2 MMOL/L (24-32); TOTAL PROTEIN 5.3 G/DL (6.4-8.2); eGFR 21 ML/MIN
[2017-10-22 14:26] LABS: ACETAMINOPHEN 5.3 UG/ML (10-30); ASPARTATE AMINO TRANSFERASE 53 U/L (10-37); MAGNESIUM 1.9 MG/DL (1.5-2.4); PHOSPHORUS 3.5 MG/DL (2.3-4.5); POTASSIUM 4.7 MMOL/L (3.5-5.1)
[2017-10-22 14:27] LABS: ETHANOL < 0.010 GM/DL (0.0-0.010)
== END | disposition short-term general hospital (02) ==
LOC: ER 11:48
DX: S06.5X9A Traumatic subdural hemorrhage with loss of consciousness of unspecified duration, initial encounter (principal); G93.40 Encephalopathy, unspecified; R41.0 Disorientation, unspecified; I10 Essential (primary) hypertension; J44.9 Chronic obstructive pulmonary disease, unspecified; K21.9 Gastro-esophageal reflux disease without esophagitis; G89.29 Other chronic pain; M79.7 Fibromyalgia; F17.210 Nicotine dependence, cigarettes, uncomplicated; G62.9 Polyneuropathy, unspecified; Z88.0 Allergy status to penicillin; Z88.5 Allergy status to narcotic agent; Z88.2 Allergy status to sulfonamides; Z88.6 Allergy status to analgesic agent; Z88.8 Allergy status to other drugs, medicaments and biological substances; Z79.2 Long term (current) use of antibiotics; Z79.899 Other long term (current) drug therapy; Z90.710 Acquired absence of both cervix and uterus; Z98.890 Other specified postprocedural states; Z56.0 Unemployment, unspecified; Z60.2 Problems related to living alone; Z86.73 Personal history of transient ischemic attack (TIA), and cerebral infarction without residual deficits; W18.30XA Fall on same level, unspecified, initial encounter; Y93.89 Activity, other specified; Y92.89 Other specified places as the place of occurrence of the external cause; Y99.8 Other external cause status
CPT/HCPCS: 36415; 70450; 71045; 80053; 80320; 80329; 82140; 83605; 83735; 84100; 84443; 85025; 85610; 93005; 96360; 99291; J7030; 84484

== ENCOUNTER 2017-11-03 16:34 | Emergency (ER) | payer MEDICARE, OTHER, MEDICAID ==
[~2017-11-03] VITALS: Ht 162.6 cm; Wt 90.0 kg
[~2017-11-03 16:34] MED LIST changes: -HUMAN PROTHROMBIN COMPLEX PCC IV ONE; -normal saline 1000ML IV soln IVB ONE
[2017-11-03] MEDS ORDERED: aspirin 81mg tab.chew PO ONE (16:55)
[2017-11-03 17:55] LABS: CLARITY,URINE SLIGHTLY CLOUDY (Clear); COLOR,URINE STRAW (Yellow); GLUCOSE, URINE NEGATIVE (Neg); KETONES,URINE NEGATIVE (Neg); LEUKOCYTE ESTERASE ,URINE SMALL (Neg); NITRITES, URINE NEGATIVE (Neg); OCCULT BLOOD,URINE TRACE-INTACT (Neg); PH,URINE 5.5 (4.8-8.0); PROTEIN,URINE NEGATIVE (Neg); UROBILINOGEN,URINE 0.2 E.U/dL (0.2-1.0)
[2017-11-03 17:56] LABS: UA COLLECTION TYPE STRAIGHT CATH
[2017-11-03 18:01] LABS: BACTERIA,URINE 2+ /HPF (Neg); RBC,URINE 0-2 /HPF (0-2); SQUAMOUS EPITHELIAL CELL,UR MANY /LPF (FEW); WBC CLUMPS,URINE MANY /HPF (NEGATIVE); WBC,URINE 30-50 /HPF (0-4)
[2017-11-03 18:07] LABS: BASOPHILS % (AUTO) 0.3 % (0-1); EOSINOPHILS # (AUTO) 0.1 X10'3 (0-0.9); EOSINOPHILS % (AUTO) 1.8 % (0-6); HEMATOCRIT 36.2 % (35.0-45.0); LYMPHOCYTES # (AUTO) 1.2 X10'3 (1.1-4.8); LYMPHOCYTES % (AUTO) 17.6 % (21-51); MEAN CORPUSCULAR HEMOGLOBIN 31.5 PG (27.0-31.0); MEAN CORPUSCULAR HGB CONC 33.1 % (33.0-36.5); MEAN PLATELET VOLUME 8.9 FL (7.4-10.4); MONOCYTES # (AUTO) 0.4 X10'3 (0-0.9); NEUTROPHILS % (AUTO) 74.3 % (42-75); PLATELET COUNT 136 X10'3 (140-440); RED BLOOD COUNT 3.81 X10'6 (4.20-5.60); RED CELL DISTRIBUTION WIDTH 16.1 % (11.5-14.5); WHITE BLOOD COUNT 6.8 X10'3 (4.5-11.0)
[2017-11-03 18:43] LABS: ALANINE AMINOTRANSFERASE 16 U/L (12-78); ALBUMIN 2.2 G/DL (3.4-5.0); ALBUMIN/GLOBULIN RATIO 0.7 (1.1-1.5); ALKALINE PHOSPHATASE 86 IU/L (46-116); ANION GAP 9 (8-16); ASPARTATE AMINO TRANSFERASE 17 U/L (10-37); BILIRUBIN,TOTAL 0.4 MG/DL (0.1-1.0); BLOOD UREA NITROGEN 4 MG/DL (7-18); BUN/CREATININE RATIO 6.9 (6.6-38.0); CALCIUM 7.7 MG/DL (8.5-10.1); CHLORIDE 107 MMOL/L (99-107); CREATININE 0.58 MG/DL (0.40-0.90); GLUCOSE 80 MG/DL (70-104); POTASSIUM 3.3 MMOL/L (3.5-5.1); SODIUM 140 MMOL/L (135-145); TOTAL CARBON DIOXIDE 24.4 MMOL/L (24-32); TOTAL PROTEIN 5.3 G/DL (6.4-8.2); eGFR > 90 ML/MIN
[2017-11-03 19:03] LABS: MAGNESIUM 0.8 MG/DL (1.5-2.4)
[2017-11-03] MEDS ORDERED: magnesium 4gm in 100ml NS 100 ML IV ONE (19:15)
[2017-11-03] MEDS ORDERED: ketorolac trometh. 30mg/ml inj. IV ONE (19:15)
[2017-11-03 21:51] VITALS: BP 133/79
== END 2017-11-04 00:01 | disposition home or self-care (01) ==
LOC: ER 16:35
DX: R07.9 Chest pain, unspecified (principal); R19.7 Diarrhea, unspecified; E83.42 Hypomagnesemia; G62.9 Polyneuropathy, unspecified; I50.9 Heart failure, unspecified; I10 Essential (primary) hypertension; J45.909 Unspecified asthma, uncomplicated; K21.9 Gastro-esophageal reflux disease without esophagitis; M79.7 Fibromyalgia; F41.9 Anxiety disorder, unspecified; F32.9 Major depressive disorder, single episode, unspecified; Z90.710 Acquired absence of both cervix and uterus; Z88.0 Allergy status to penicillin; Z88.2 Allergy status to sulfonamides; Z88.6 Allergy status to analgesic agent; Z88.5 Allergy status to narcotic agent
CPT/HCPCS: 36415; 71045; 80053; 81001; 83735; 83880; 84484; 85025; 87088; 87186; 96365; 96366; 96375; 99285; J1885; J3475; 87077

== ENCOUNTER 2017-11-09 08:17 | Emergency (ER) | payer MEDICARE, OTHER, MEDICAID ==
[~2017-11-09] VITALS: Ht 162.6 cm; Wt 72.7 kg
[2017-11-09 09:29] VITALS: BP 128/84
[2017-11-09 09:31] LABS: BASOPHILS % (AUTO) 0.8 % (0-1); EOSINOPHILS # (AUTO) 0.1 X10'3 (0-0.9); EOSINOPHILS % (AUTO) 1.1 % (0-6); HEMATOCRIT 37.1 % (35.0-45.0); HEMOGLOBIN 12.4 g/dl (12.0-16.0); LYMPHOCYTES # (AUTO) 0.7 X10'3 (1.1-4.8); LYMPHOCYTES % (AUTO) 11.2 % (21-51); MEAN CORPUSCULAR HEMOGLOBIN 31.9 PG (27.0-31.0); MEAN CORPUSCULAR HGB CONC 33.3 % (33.0-36.5); MEAN CORPUSCULAR VOLUME 95.8 FL (78-98); MONOCYTES # (AUTO) 0.3 X10'3 (0-0.9); NEUTROPHILS # (AUTO) 4.8 X10'3 (1.8-7.7); NEUTROPHILS % (AUTO) 81.9 % (42-75); PLATELET COUNT 131 X10'3 (140-440); RED BLOOD COUNT 3.87 X10'6 (4.20-5.60); RED CELL DISTRIBUTION WIDTH 14.9 % (11.5-14.5); WHITE BLOOD COUNT 5.9 X10'3 (4.5-11.0)
[2017-11-09 09:45] LABS: ALANINE AMINOTRANSFERASE 11 U/L (12-78); ALBUMIN 2.2 G/DL (3.4-5.0); ALBUMIN/GLOBULIN RATIO 0.7 (1.1-1.5); ALKALINE PHOSPHATASE 100 IU/L (46-116); ANION GAP 7 (8-16); ASPARTATE AMINO TRANSFERASE 19 U/L (10-37); BILIRUBIN,TOTAL 0.5 MG/DL (0.1-1.0); BLOOD UREA NITROGEN 4 MG/DL (7-18); BUN/CREATININE RATIO 6.3 (6.6-38.0); CALCIUM 8.3 MG/DL (8.5-10.1); CHLORIDE 103 MMOL/L (99-107); CREATININE 0.63 MG/DL (0.40-0.90); GLUCOSE 94 MG/DL (70-104); POTASSIUM 3.8 MMOL/L (3.5-5.1); SODIUM 139 MMOL/L (135-145); TOTAL CARBON DIOXIDE 29.2 MMOL/L (24-32); TOTAL PROTEIN 5.4 G/DL (6.4-8.2); eGFR > 90 ML/MIN
[2017-11-09 09:53] LABS: MAGNESIUM 1.2 MG/DL (1.5-2.4)
== END 2017-11-09 10:49 | disposition home or self-care (01) ==
LOC: ER 08:17
DX: R00.2 Palpitations (principal); R00.0 Tachycardia, unspecified; G62.9 Polyneuropathy, unspecified; I11.0 Hypertensive heart disease with heart failure; I50.9 Heart failure, unspecified; J44.9 Chronic obstructive pulmonary disease, unspecified; K21.9 Gastro-esophageal reflux disease without esophagitis; G89.29 Other chronic pain; M79.7 Fibromyalgia; Z86.73 Personal history of transient ischemic attack (TIA), and cerebral infarction without residual deficits; Z98.890 Other specified postprocedural states; Z90.710 Acquired absence of both cervix and uterus; Z56.0 Unemployment, unspecified; Z88.0 Allergy status to penicillin; Z88.5 Allergy status to narcotic agent; Z88.2 Allergy status to sulfonamides; Z79.899 Other long term (current) drug therapy
CPT/HCPCS: 36415; 80053; 83735; 84443; 85025; 93005; 99285

== ENCOUNTER 2018-08-10 12:32 | Emergency (ER) | payer MEDICARE, OTHER, MEDICAID ==
[~2018-08-10] VITALS: Ht 162.6 cm; Wt 68.0 kg
[~2018-08-10 12:32] MED LIST changes: -ACET-2006 PO; +AMYL1CAP55 PO; -ANUHCCR RC; +BUPR1PAT TOP; -CEPH250T PO; +CEPH500C5 PO; -CYCL-394 PO; +CYCL10TA25 PO; -DIPH-186 PO; -DIPH-423 PO; +DIPH1TAB28 PO; +DOXY-224 PO; +FOLI0.4T2 PO; +HYDR-3964 PO; -KEN0.1O TP; +LEVE500T PO; +LEVO88TA7 PO; -MORP-64 PO; -NORCO10T PO; +OMEP-50 PO; -OMEP40CA37 PO; +POLY1DRO2 OP; -POTA10TA19 PO; +POTA20TA19 PO; +PROC10TA10 PO; -PROC25SU31 RC; -SUCR1ORA12 PO; +SUMA100T16 PO; -SUMA25TA35 PO; -SYN0.1T PO; -TRAZ-91 PO; +TRAZ150T78 PO; +UMEC1DIS INH; -VAL5T PO
[2018-08-10] MEDS ORDERED: ondansetron/PF 4mg/2ml inj IV ONE (13:00)
[2018-08-10] MEDS ORDERED: normal saline 1000ML IV soln IVB ONE (13:00)
[2018-08-10] MEDS ORDERED: acetaminophen 1,000mg/100ml IV 100 ML IV ONE (14:00)
[2018-08-10 14:48] LABS: ALANINE AMINOTRANSFERASE 34 U/L (12-78); ALBUMIN/GLOBULIN RATIO 0.2 (1.1-1.5); ALKALINE PHOSPHATASE 170 IU/L (46-116); ANION GAP 2 (8-16); ASPARTATE AMINO TRANSFERASE 74 U/L (10-37); BILIRUBIN,TOTAL 0.8 MG/DL (0.1-1.0); BLOOD UREA NITROGEN 4 MG/DL (7-18); BUN/CREATININE RATIO 5.3 (6.6-38.0); CHLORIDE 108 MMOL/L (99-107); CREATININE 0.76 MG/DL (0.40-0.90); ETHANOL < 0.010 GM/DL (0.0-0.010); GLUCOSE 100 MG/DL (70-104); LIPASE < 50 U/L (73-393); SODIUM 135 MMOL/L (135-145); TOTAL CARBON DIOXIDE 24.7 MMOL/L (24-32); TOTAL PROTEIN 5.1 G/DL (6.4-8.2); eGFR 78 ML/MIN
[2018-08-10 14:59] LABS: BASOPHILS % (AUTO) 0.1 % (0-1); EOSINOPHILS % (AUTO) 0.4 % (0-6); HEMATOCRIT 30.6 % (35.0-45.0); HEMOGLOBIN 10.2 g/dl (12.0-16.0); LYMPHOCYTES # (AUTO) 0.8 X10'3 (1.1-4.8); LYMPHOCYTES % (AUTO) 12.6 % (21-51); MEAN CORPUSCULAR HGB CONC 33.3 g/dL (33.0-36.5); MEAN CORPUSCULAR VOLUME 114.2 FL (78-98); MEAN PLATELET VOLUME 8.2 FL (7.4-10.4); MONOCYTES # (AUTO) 0.3 X10'3 (0-0.9); NEUTROPHILS # (AUTO) 5.6 X10'3 (1.8-7.7); NEUTROPHILS % (AUTO) 82.9 % (42-75); PLATELET COUNT 151 X10'3 (140-440); RED BLOOD COUNT 2.68 X10'6 (4.20-5.60); WHITE BLOOD COUNT 6.7 X10'3 (4.5-11.0)
--- NOTE | 2018-08-10 15:20 | NUR ---
Extended PIV inserted to the right upper arm brachial vein x 2 attempts after one failed attempt to the Addendum: 08/10/18 at 1549 by Jeanette Balbuena RN Amended: Links added.
[2018-08-10] MEDS ORDERED: HYDROcodone/acetaminophen 5mg/325mg tablet PO ONE (15:50)
[2018-08-10 16:43] LABS: PLATELET ESTIMATE NORMAL
[2018-08-10 16:44] LABS: BURR CELLS 1+
[2018-08-10 16:45] LABS: SCHISTOCYTES FEW
[2018-08-10 17:02] LABS: POLYCHROMASIA FEW
[2018-08-10] MEDS ORDERED: MYCOL30CR TP (17:03)
[2018-08-10 18:12] VITALS: BP 96/40
== END 2018-08-10 18:16 | disposition home or self-care (01) ==
LOC: ER 12:32
DX: E86.0 Dehydration (principal); R42 Dizziness and giddiness; F11.20 Opioid dependence, uncomplicated; R60.0 Localized edema; R10.10 Upper abdominal pain, unspecified; J44.9 Chronic obstructive pulmonary disease, unspecified; K21.9 Gastro-esophageal reflux disease without esophagitis; I11.0 Hypertensive heart disease with heart failure; I50.9 Heart failure, unspecified; G89.29 Other chronic pain; M79.7 Fibromyalgia; Z56.0 Unemployment, unspecified; Z90.710 Acquired absence of both cervix and uterus; Z98.890 Other specified postprocedural states; Z86.73 Personal history of transient ischemic attack (TIA), and cerebral infarction without residual deficits; Z88.0 Allergy status to penicillin; Z88.5 Allergy status to narcotic agent; Z88.2 Allergy status to sulfonamides; Z79.899 Other long term (current) drug therapy
CPT/HCPCS: 36415; 80053; 80320; 82140; 83690; 83880; 84484; 85025; 88341; 93005; 96365; 96375; 99284; J0131; J2405; J7030; 88173; 88305; 88313; 88342

== ENCOUNTER 2018-08-13 23:58 | Inpatient (IN) | payer MEDICARE, OTHER, MEDICAID ==
[~2018-08-13] VITALS: Ht 162.6 cm; Wt 63.6 kg
[~2018-08-13 23:58] MED LIST changes: +MYCOL30CR TP
[2018-08-14] MEDS ORDERED: normal saline 1000ML IV soln IVB ONE (00:05)
[2018-08-14 01:47] LABS: BASOPHILS % (AUTO) 0.5 % (0-1); EOSINOPHILS % (AUTO) 0.7 % (0-6); HEMOGLOBIN 9.2 g/dl (12.0-16.0); LYMPHOCYTES # (AUTO) 0.8 X10'3 (1.1-4.8); LYMPHOCYTES % (AUTO) 13.3 % (21-51); MEAN CORPUSCULAR HEMOGLOBIN 38.3 PG (27.0-31.0); MEAN PLATELET VOLUME 8.5 FL (7.4-10.4); MONOCYTES # (AUTO) 0.3 X10'3 (0-0.9); MONOCYTES % (AUTO) 5.8 % (2-12); NEUTROPHILS # (AUTO) 4.5 X10'3 (1.8-7.7); NEUTROPHILS % (AUTO) 79.7 % (42-75); PLATELET COUNT 102 X10'3 (140-440); RED BLOOD COUNT 2.41 X10'6 (4.20-5.60); RED CELL DISTRIBUTION WIDTH 28.7 % (11.5-14.5); WHITE BLOOD COUNT 5.7 X10'3 (4.5-11.0)
[2018-08-14 01:58] LABS: ALANINE AMINOTRANSFERASE 49 U/L (12-78); ALBUMIN/GLOBULIN RATIO 0.3 (1.1-1.5); ALKALINE PHOSPHATASE 187 IU/L (46-116); ANION GAP 4 (8-16); ASPARTATE AMINO TRANSFERASE 99 U/L (10-37); BILIRUBIN,TOTAL 1.2 MG/DL (0.1-1.0); BLOOD UREA NITROGEN 5 MG/DL (7-18); BUN/CREATININE RATIO 5.5 (6.6-38.0); CALCIUM 8.1 MG/DL (8.5-10.1); CHLORIDE 110 MMOL/L (99-107); CREATININE 0.91 MG/DL (0.40-0.90); GLUCOSE 70 MG/DL (70-104); LIPASE < 50 U/L (73-393); POTASSIUM 4.6 MMOL/L (3.5-5.1); SODIUM 140 MMOL/L (135-145); TOTAL CARBON DIOXIDE 26.4 MMOL/L (24-32); TOTAL PROTEIN 4.6 G/DL (6.4-8.2); eGFR 63 ML/MIN
[2018-08-14 02:00] LABS: CLARITY,URINE SLIGHTLY CLOUDY (Clear); COLOR,URINE YELLOW (Yellow); GLUCOSE, URINE NEGATIVE (Neg); KETONES,URINE NEGATIVE (Neg); LEUKOCYTE ESTERASE ,URINE SMALL (Neg); NITRITES, URINE NEGATIVE (Neg); OCCULT BLOOD,URINE NEGATIVE (Neg); PH,URINE 5.5 (4.8-8.0); PROTEIN,URINE NEGATIVE (Neg); UROBILINOGEN,URINE 0.2 E.U/dL (0.2-1.0)
[2018-08-14 02:14] LABS: UA COLLECTION TYPE STRAIGHT CATH
[2018-08-14 02:15] LABS: BACTERIA,URINE FEW /HPF (Neg); RBC,URINE 0-2 /HPF (0-2); SQUAMOUS EPITHELIAL CELL,UR FEW /LPF (FEW); WBC,URINE 20-30 /HPF (0-4); YEAST MODERATE /HPF (NEGATIVE)
[2018-08-14 03:49] LABS: ANISOCYTOSIS 3+; ELLIPTOCYTES FEW; PLATELET ESTIMATE DECREASED; POLYCHROMASIA FEW
[2018-08-14] MEDS ORDERED: CefTRIAXone 2gm/D5W 50ml 50 ML IV ONE (04:05)
[2018-08-14] MEDS ORDERED: magnesium 2GM in 50ml NS 50 ML IV PRN (04:30)
[2018-08-14] MEDS ORDERED: mag hydrox/Alum hydrox/simeth 30ml oral suspension PO PRN (04:30)
[2018-08-14] MEDS ORDERED: potassium Cl 40MEQ/NS 500ml 500 ML IV PRN (04:30)
[2018-08-14] MEDS ORDERED: acetaminophen 325mg tablet PO PRN ×2 (04:30)
[2018-08-14] MEDS ORDERED: magnesium 4gm in 100ml NS 100 ML IV PRN (04:30)
[2018-08-14] MEDS ORDERED: potassium Cl 20 mEq SR tablet PO PRN ×2 (04:30)
[2018-08-14] MEDS ORDERED: potassium CL 10mEq/100ml bag 100 ML IV PRN (04:30)
[2018-08-14] MEDS ORDERED: ondansetron/PF 4mg/2ml inj IV PRN (04:30)
[2018-08-14] MEDS ORDERED: magnesium hydroxide 30ml (MOM) UD suspension PO PRN (04:30)
[2018-08-14] MEDS ORDERED: ESTR1TAB19 PO (06:11)
[2018-08-14] MEDS ORDERED: FENO48TA15 PO (06:11)
[2018-08-14] MEDS ORDERED: MYCOL15CR TOP (06:11)
[2018-08-14] MEDS ORDERED: METO-395 PO (07:15)
[2018-08-14] MEDS ORDERED: KEN0.1O (07:15)
[2018-08-14] MEDS ORDERED: FURO80TA3 PO (07:15)
[2018-08-14] MEDS: enoxaparin 40mg/0.4ml syringe SQ SCH (08:00)
[2018-08-14] MEDS: K and/or MAG REPLACEMENT MC SCH (08:00)
[2018-08-14 09:00] VITALS: BP 139/52
--- NOTE | 2018-08-14 11:36 | NUR ---
NOTIFIED DR GARZA RE BP 102/40. NO NEW ORDERS GIVEN
[2018-08-14] MEDS ORDERED: CefTRIAXone/D5W-Rocephin 1gm 50 ML IV ONE (13:00)
[2018-08-14] MEDS: nystatin 15 GM powder TP SCH ×2 (13:47→21:28)
[2018-08-14] MEDS ORDERED: SUMAtriptan 25 MG tablet PO PRN (14:30)
[2018-08-14] MEDS ORDERED: BUPRENORPHINE 5 MCG TOP SCH (14:30)
[2018-08-14] MEDS ORDERED: fluticasone nasal spray 16GM bottle NS PRN (14:30)
[2018-08-14] MEDS ORDERED: gabapentin 100mg capsule PO ONE (15:25)
[2018-08-14] MEDS: HYDROcodone/acetaminophen 5mg/325mg tablet PO PRN ×2 (16:03→21:31)
[2018-08-14 18:00] VITALS: BP 102/80
--- NOTE | 2018-08-14 18:18 | NUR ---
Problems reprioritized. Patient report given, questions answered & plan of care reviewed with CHAMP BANKS.
[2018-08-14] MEDS ORDERED: nystatin/triamcinolone cream 15gm TP SCH (20:00)
[2018-08-14] MEDS: levetiracetam 250mg tablet PO SCH (21:25)
[2018-08-14] MEDS: potassium Cl 20 mEq SR tablet PO SCH (21:25)
[2018-08-14] MEDS: gabapentin 100mg capsule PO SCH (21:25)
[2018-08-15 07:00] VITALS: BP 91/66
--- NOTE | 2018-08-15 07:00 | NUR ---
Patient in room [facility]. I have received report from GAMMA RAY OPERATOR and had the opportunity to ask questions and assume patient care. Addendum: 08/15/18 at 0902 by Masha Nance RN Amended: Links added.
[2018-08-15] MEDS: K and/or MAG REPLACEMENT MC SCH (07:03)
[2018-08-15] MEDS: furosemide 20MG tablet PO SCH (07:56)
[2018-08-15] MEDS: metoprolol succinate 25mg (24-HOUR) SR. Tablet PO SCH (08:00)
[2018-08-15] MEDS: potassium Cl 20 mEq SR tablet PO SCH ×2 (08:03→20:53)
[2018-08-15] MEDS: pantoprazole 40mg Tablet.DR PO SCH (08:03)
[2018-08-15] MEDS: levoTHYROXINE 88mcg tablet PO SCH (08:03)
[2018-08-15] MEDS: gabapentin 100mg capsule PO SCH ×3 (08:03→20:54)
[2018-08-15] MEDS: levetiracetam 250mg tablet PO SCH ×2 (08:03→20:59)
[2018-08-15] MEDS: folic acid 1mg tablet PO SCH (08:03)
[2018-08-15] MEDS: enoxaparin 40mg/0.4ml syringe SQ SCH (08:04)
[2018-08-15] MEDS: fenofibrate 145mg tablet PO SCH (08:04)
[2018-08-15] MEDS: CefTRIAXone 2gm/D5W 50ml 50 ML IV SCH (08:11)
[2018-08-15 11:00] VITALS: BP 97/66
[2018-08-15 14:13] LABS: BASOPHILS % (AUTO) 0.3 % (0-1); EOSINOPHILS % (AUTO) 0.1 % (0-6); HEMATOCRIT 27.5 % (35.0-45.0); HEMOGLOBIN 8.8 g/dl (12.0-16.0); LYMPHOCYTES # (AUTO) 0.5 X10'3 (1.1-4.8); LYMPHOCYTES % (AUTO) 12.3 % (21-51); MEAN CORPUSCULAR HEMOGLOBIN 37.5 PG (27.0-31.0); MEAN CORPUSCULAR HGB CONC 32.1 g/dL (33.0-36.5); MEAN CORPUSCULAR VOLUME 116.8 FL (78-98); MEAN PLATELET VOLUME 8.4 FL (7.4-10.4); MONOCYTES # (AUTO) 0.3 X10'3 (0-0.9); MONOCYTES % (AUTO) 7.5 % (2-12); NEUTROPHILS # (AUTO) 3.5 X10'3 (1.8-7.7); NEUTROPHILS % (AUTO) 79.8 % (42-75); PLATELET COUNT 78 X10'3 (140-440); RED BLOOD COUNT 2.36 X10'6 (4.20-5.60); RED CELL DISTRIBUTION WIDTH 28.8 % (11.5-14.5); WHITE BLOOD COUNT 4.4 X10'3 (4.5-11.0)
[2018-08-15 14:23] LABS: ANION GAP 6 (8-16); BLOOD UREA NITROGEN 5 MG/DL (7-18); BUN/CREATININE RATIO 6.1 (6.6-38.0); CALCIUM 7.8 MG/DL (8.5-10.1); CHLORIDE 110 MMOL/L (99-107); CREATININE 0.82 MG/DL (0.40-0.90); GLUCOSE 88 MG/DL (70-104); SODIUM 138 MMOL/L (135-145); eGFR 71 ML/MIN
[2018-08-15 14:33] LABS: ANISOCYTOSIS 3+; PLATELET ESTIMATE DECREASED; POIKILOCYTOSIS FEW; POLYCHROMASIA 1+
[2018-08-15] MEDS: magnesium Cl slow-release 64mg tablet PO PRN (16:00)
--- NOTE | 2018-08-15 18:24 | NUR ---
Problems reprioritized. Patient report given, questions answered & plan of care reviewed with Simin. Addendum: 08/15/18 at 1825 by Masha Nance RN Amended: Links added.
--- NOTE | 2018-08-15 18:53 | NUR ---
Patient in room [facility]. I have received report from Masha BANKS and had the opportunity to ask questions and assume patient care.
[2018-08-15 20:00] VITALS: BP 105/63
[2018-08-15] MEDS ORDERED: HYDROcodone/acetaminophen 5mg/325mg tablet PO PRN (20:00)
[2018-08-15] MEDS: lactobacillus rhamnosus 10,000 MMU CELLS/CAPSULE PO SCH (20:53)
[2018-08-15] MEDS: HYDROcodone/acetaminophen 5mg/325mg tablet PO SCH (20:59)
[2018-08-16 00:52] VITALS: BP 112/61
[2018-08-16] MEDS: HYDROcodone/acetaminophen 5mg/325mg tablet PO SCH ×4 (02:09→20:41)
--- NOTE | 2018-08-16 06:30 | NUR ---
Patient in room [facility]. I have received report from Simin and had the opportunity to ask questions and assume patient care. Addendum: 08/16/18 at 0845 by Masha Nance RN Amended: Links added.
--- NOTE | 2018-08-16 06:50 | NUR ---
Problems reprioritized. Patient report given, questions answered & plan of care reviewed with Masha BANKS.
[2018-08-16 07:00] VITALS: BP 113/64
[2018-08-16] MEDS: K and/or MAG REPLACEMENT MC SCH (07:08)
[2018-08-16] MEDS: CefTRIAXone 2gm/D5W 50ml 50 ML IV SCH (07:12)
[2018-08-16] MEDS: enoxaparin 40mg/0.4ml syringe SQ SCH (08:00)
[2018-08-16] MEDS: gabapentin 100mg capsule PO SCH ×3 (08:28→20:41)
[2018-08-16] MEDS: pantoprazole 40mg Tablet.DR PO SCH (08:28)
[2018-08-16] MEDS: levoTHYROXINE 88mcg tablet PO SCH (08:28)
[2018-08-16] MEDS: fenofibrate 145mg tablet PO SCH (08:28)
[2018-08-16] MEDS: potassium Cl 20 mEq SR tablet PO SCH ×2 (08:29→20:40)
[2018-08-16] MEDS: furosemide 20MG tablet PO SCH (08:29)
[2018-08-16] MEDS: levetiracetam 250mg tablet PO SCH ×2 (08:29→20:41)
[2018-08-16] MEDS: folic acid 1mg tablet PO SCH (08:29)
[2018-08-16] MEDS: lactobacillus rhamnosus 10,000 MMU CELLS/CAPSULE PO SCH ×2 (08:29→20:41)
[2018-08-16] MEDS: metoprolol succinate 25mg (24-HOUR) SR. Tablet PO SCH (08:29)
[2018-08-16] MEDS ORDERED: FURO80TA3 PO (08:43)
[2018-08-16] MEDS ORDERED: FENO134C PO (08:45)
[2018-08-16] MEDS ORDERED: GABA-532 PO (08:45)
[2018-08-16 08:57] LABS: BASOPHILS % (AUTO) 0.1 % (0-1); EOSINOPHILS % (AUTO) 0.7 % (0-6); HEMATOCRIT 25.3 % (35.0-45.0); HEMOGLOBIN 8.5 g/dl (12.0-16.0); LYMPHOCYTES # (AUTO) 0.7 X10'3 (1.1-4.8); LYMPHOCYTES % (AUTO) 18.4 % (21-51); MEAN CORPUSCULAR HEMOGLOBIN 38.5 PG (27.0-31.0); MEAN CORPUSCULAR HGB CONC 33.6 g/dL (33.0-36.5); MEAN CORPUSCULAR VOLUME 114.7 FL (78-98); MEAN PLATELET VOLUME 8.1 FL (7.4-10.4); MONOCYTES # (AUTO) 0.4 X10'3 (0-0.9); MONOCYTES % (AUTO) 9.1 % (2-12); NEUTROPHILS # (AUTO) 2.8 X10'3 (1.8-7.7); NEUTROPHILS % (AUTO) 71.7 % (42-75); PLATELET COUNT 68 X10'3 (140-440); WHITE BLOOD COUNT 3.9 X10'3 (4.5-11.0)
[2018-08-16] MEDS ORDERED: METO-395 PO (09:07)
[2018-08-16] MEDS ORDERED: BUPR1PAT TOP (09:07)
[2018-08-16 09:13] LABS: ANION GAP 3 (8-16); BLOOD UREA NITROGEN 4 MG/DL (7-18); BUN/CREATININE RATIO 6.1 (6.6-38.0); CALCIUM 8.2 MG/DL (8.5-10.1); CHLORIDE 110 MMOL/L (99-107); CREATININE 0.66 MG/DL (0.40-0.90); GLUCOSE 68 MG/DL (70-104); POTASSIUM 4.9 MMOL/L (3.5-5.1); SODIUM 138 MMOL/L (135-145); TOTAL CARBON DIOXIDE 25.5 MMOL/L (24-32); eGFR > 90 ML/MIN
[2018-08-16 09:21] LABS: ANISOCYTOSIS 3+; PLATELET ESTIMATE DECREASED
[2018-08-16 09:22] LABS: POLYCHROMASIA FEW
[2018-08-16 11:00] VITALS: BP 113/65
[2018-08-16] MEDS: magnesium Cl slow-release 64mg tablet PO PRN ×2 (11:23→20:46)
[2018-08-16 18:00] VITALS: BP 103/63
--- NOTE | 2018-08-16 18:10 | NUR ---
Patient in room [facility]. I have received report from JOCELYN Flanagan and had the opportunity to ask questions and assume patient care.
--- NOTE | 2018-08-16 18:10 | NUR ---
Problems reprioritized. Patient report given, questions answered & plan of care reviewed with Lyla. Addendum: 08/16/18 at 1811 by Masha Nance RN Amended: Links added.
--- NOTE | 2018-08-16 22:22 | NUR ---
Student documentation: I have reviewed and agree with all interventions, assessments performed and documented by Gilson Edouard RN. Addendum: 08/16/18 at 2222 by Lyla Juarez RN Amended: Links added.
[2018-08-17] VITALS: BP 108/56
[2018-08-17] MEDS: HYDROcodone/acetaminophen 5mg/325mg tablet PO SCH ×4 (02:21→20:27)
[2018-08-17 05:20] LABS: BASOPHILS % (AUTO) 0.1 % (0-1); EOSINOPHILS % (AUTO) 0.6 % (0-6); HEMATOCRIT 28.1 % (35.0-45.0); HEMOGLOBIN 9.6 g/dl (12.0-16.0); LYMPHOCYTES # (AUTO) 0.5 X10'3 (1.1-4.8); LYMPHOCYTES % (AUTO) 13.4 % (21-51); MEAN CORPUSCULAR HEMOGLOBIN 39.2 PG (27.0-31.0); MEAN CORPUSCULAR HGB CONC 34.1 g/dL (33.0-36.5); MEAN CORPUSCULAR VOLUME 115.1 FL (78-98); MEAN PLATELET VOLUME 8.2 FL (7.4-10.4); MONOCYTES # (AUTO) 0.3 X10'3 (0-0.9); MONOCYTES % (AUTO) 7.8 % (2-12); NEUTROPHILS # (AUTO) 3.2 X10'3 (1.8-7.7); NEUTROPHILS % (AUTO) 78.1 % (42-75); PLATELET COUNT 60 X10'3 (140-440); RED BLOOD COUNT 2.45 X10'6 (4.20-5.60); RED CELL DISTRIBUTION WIDTH 28.3 % (11.5-14.5)
[2018-08-17 05:29] LABS: ALBUMIN 1.1 G/DL (3.4-5.0); ANION GAP 6 (8-16); BLOOD UREA NITROGEN 4 MG/DL (7-18); BUN/CREATININE RATIO 5.9 (6.6-38.0); CALCIUM 8.4 MG/DL (8.5-10.1); CHLORIDE 110 MMOL/L (99-107); CREATININE 0.68 MG/DL (0.40-0.90); GLUCOSE 61 MG/DL (70-104); MAGNESIUM 1.1 MG/DL (1.5-2.4); POTASSIUM 4.8 MMOL/L (3.5-5.1); SODIUM 139 MMOL/L (135-145); TOTAL CARBON DIOXIDE 22.6 MMOL/L (24-32); eGFR 89 ML/MIN
--- NOTE | 2018-08-17 06:23 | NUR ---
Problems reprioritized. Patient report given, questions answered & plan of care reviewed with JOCELYN Granados.
[2018-08-17 07:07] VITALS: BP 116/78
[2018-08-17 07:42] LABS: ANISOCYTOSIS 3+; PLATELET ESTIMATE DECREASED
[2018-08-17] MEDS: K and/or MAG REPLACEMENT MC SCH (08:00)
[2018-08-17] MEDS: enoxaparin 40mg/0.4ml syringe SQ SCH (08:00)
[2018-08-17] MEDS: CefTRIAXone 2gm/D5W 50ml 50 ML IV SCH (08:10)
[2018-08-17] MEDS: potassium Cl 20 mEq SR tablet PO SCH ×2 (08:10→20:26)
[2018-08-17] MEDS: folic acid 1mg tablet PO SCH (08:10)
[2018-08-17] MEDS: furosemide 20MG tablet PO SCH (08:10)
[2018-08-17] MEDS: levoTHYROXINE 88mcg tablet PO SCH (08:10)
[2018-08-17] MEDS: levetiracetam 250mg tablet PO SCH ×2 (08:10→20:26)
[2018-08-17] MEDS: lactobacillus rhamnosus 10,000 MMU CELLS/CAPSULE PO SCH ×2 (08:10→20:26)
[2018-08-17] MEDS: gabapentin 100mg capsule PO SCH ×3 (08:10→20:26)
[2018-08-17] MEDS: fenofibrate 145mg tablet PO SCH (08:10)
[2018-08-17] MEDS: metoprolol succinate 25mg (24-HOUR) SR. Tablet PO SCH (08:10)
[2018-08-17] MEDS: pantoprazole 40mg Tablet.DR PO SCH (08:10)
[2018-08-17] MEDS ORDERED: magnesium 4gm in 100ml NS 100 ML IV PRN (10:15)
[2018-08-17] MEDS ORDERED: potassium CL 10mEq/100ml bag 100 ML IV PRN (10:15)
[2018-08-17] MEDS ORDERED: potassium Cl 20 mEq SR tablet PO PRN ×2 (10:15)
[2018-08-17 11:00] VITALS: BP 111/56
[2018-08-17] MEDS: magnesium Cl slow-release 64mg tablet PO PRN (14:28)
--- NOTE | 2018-08-17 15:01 | NUR ---
Patient in room [facility]. I have received report from JOCELYN Granados and had the opportunity to ask questions and assume patient care.
--- NOTE | 2018-08-17 18:14 | NUR ---
Patient in room [facility]. I have received report from JOCELYN CRUZ and had the opportunity to ask questions and assume patient care.
--- NOTE | 2018-08-17 18:14 | NUR ---
Problems reprioritized. Patient report given, questions answered & plan of care reviewed with JOCELYN Arita and JOCELYN Riggins.
[2018-08-17 20:00] VITALS: BP 118/52
--- NOTE | 2018-08-17 22:12 | NUR ---
Student documentation: I have reviewed and agree with all interventions, assessments performed and documented by Gilson Edouard RN. Addendum: 08/17/18 at 2212 by Lyla Juarez RN Amended: Links added.
[2018-08-18] VITALS: BP 103/59
[2018-08-18] MEDS: magnesium Cl slow-release 64mg tablet PO PRN (00:58)
[2018-08-18] MEDS: HYDROcodone/acetaminophen 5mg/325mg tablet PO SCH ×2 (01:00→08:52)
--- NOTE | 2018-08-18 06:09 | NUR ---
Problems reprioritized. Patient report given, questions answered & plan of care reviewed with JOCELYN Tucker.
--- NOTE | 2018-08-18 06:33 | NUR ---
Patient in room [facility]. I have received report from Gilson RN and Lyla RN and had the opportunity to ask questions and assume patient care.
[2018-08-18 07:14] VITALS: BP 113/62
[2018-08-18] MEDS: levetiracetam 250mg tablet PO SCH (08:51)
[2018-08-18] MEDS: potassium Cl 20 mEq SR tablet PO SCH (08:51)
[2018-08-18] MEDS: gabapentin 100mg capsule PO SCH ×2 (08:51→13:00)
[2018-08-18] MEDS: lactobacillus rhamnosus 10,000 MMU CELLS/CAPSULE PO SCH (08:51)
[2018-08-18] MEDS: levoTHYROXINE 88mcg tablet PO SCH (08:52)
[2018-08-18] MEDS: folic acid 1mg tablet PO SCH (08:52)
[2018-08-18] MEDS: metoprolol succinate 25mg (24-HOUR) SR. Tablet PO SCH (08:52)
[2018-08-18] MEDS: pantoprazole 40mg Tablet.DR PO SCH (08:55)
[2018-08-18 09:08] LABS: BASOPHILS % (AUTO) 0.2 % (0-1); EOSINOPHILS % (AUTO) 0.7 % (0-6); LYMPHOCYTES # (AUTO) 0.7 X10'3 (1.1-4.8); LYMPHOCYTES % (AUTO) 10.8 % (21-51); MEAN CORPUSCULAR HEMOGLOBIN 38.6 PG (27.0-31.0); MEAN CORPUSCULAR HGB CONC 33.2 g/dL (33.0-36.5); MEAN CORPUSCULAR VOLUME 116.3 FL (78-98); MEAN PLATELET VOLUME 8.4 FL (7.4-10.4); MONOCYTES # (AUTO) 0.5 X10'3 (0-0.9); MONOCYTES % (AUTO) 7.1 % (2-12); NEUTROPHILS # (AUTO) 5.5 X10'3 (1.8-7.7); NEUTROPHILS % (AUTO) 81.2 % (42-75); PLATELET COUNT 82 X10'3 (140-440); RED BLOOD COUNT 2.32 X10'6 (4.20-5.60); RED CELL DISTRIBUTION WIDTH 28.6 % (11.5-14.5); WHITE BLOOD COUNT 6.8 X10'3 (4.5-11.0)
[2018-08-18 09:15] LABS: ALBUMIN 0.9 G/DL (3.4-5.0); ANION GAP 7 (8-16); BLOOD UREA NITROGEN 3 MG/DL (7-18); BUN/CREATININE RATIO 3.9 (6.6-38.0); CALCIUM 8.1 MG/DL (8.5-10.1); CHLORIDE 109 MMOL/L (99-107); CREATININE 0.77 MG/DL (0.40-0.90); GLUCOSE 111 MG/DL (70-104); MAGNESIUM 1.1 MG/DL (1.5-2.4); SODIUM 136 MMOL/L (135-145); eGFR 77 ML/MIN
[2018-08-18 09:25] LABS: POTASSIUM 5.2 MMOL/L (3.5-5.1)
[2018-08-18 09:34] LABS: PLATELET ESTIMATE DECREASED
[2018-08-18 09:42] LABS: HYPOCHROMASIA 1+
[2018-08-18 09:43] LABS: POLYCHROMASIA FEW; STOMATOCYTES 1+
[2018-08-18 09:44] LABS: ANISOCYTOSIS 3+
[2018-08-18] MEDS ORDERED: MAGN400C PO (10:43)
[2018-08-18 11:00] VITALS: BP 112/80
--- NOTE | 2018-08-18 12:30 | NUR ---
Per [facility] director case today, patient will be set up with interim home health. Explained this to patient, but that home health might not be able to come see the patient until the weekend. Patient states understanding and agreeing to discharge home. Patient's brother Gilson at bedside. Gilson also states Suzan has caregiver to come to the house until interim home health could send someone.
== END 2018-08-18 12:30 | disposition home health service (06) | DRG 689 ==
LOC: ER 23:59 → SUR 3N 08-14 06:31 → CMPBEDREQ 08-16 19:46
PROVIDERS: ADMIT Hospitalist; ATTEND Internal Medicine
DX: N39.0 Urinary tract infection, site not specified (principal); E43 Unspecified severe protein-calorie malnutrition; R62.7 Adult failure to thrive; I11.0 Hypertensive heart disease with heart failure; I50.9 Heart failure, unspecified; G89.4 Chronic pain syndrome; D69.6 Thrombocytopenia, unspecified; E83.42 Hypomagnesemia; D64.9 Anemia, unspecified; F17.210 Nicotine dependence, cigarettes, uncomplicated; F32.9 Major depressive disorder, single episode, unspecified; F41.9 Anxiety disorder, unspecified; Z60.2 Problems related to living alone; M54.9 Dorsalgia, unspecified; G62.9 Polyneuropathy, unspecified; J44.9 Chronic obstructive pulmonary disease, unspecified; K21.9 Gastro-esophageal reflux disease without esophagitis; M79.7 Fibromyalgia; Z79.899 Other long term (current) drug therapy; Z86.73 Personal history of transient ischemic attack (TIA), and cerebral infarction without residual deficits; Z90.710 Acquired absence of both cervix and uterus; Z68.24 Body mass index [BMI] 24.0-24.9, adult; Z88.0 Allergy status to penicillin; Z88.5 Allergy status to narcotic agent; Z88.2 Allergy status to sulfonamides; Z91.018 Allergy to other foods; Z91.048 Other nonmedicinal substance allergy status
CPT/HCPCS: 36415; 71045; 80048; 80053; 81001; 83690; 83735; 85025; 87070; 87088; 96365; 97110; 97116; 97162; 97530; 99285; G0378; J0696; J1650